=== PATIENT | male | born 1955 | race Caucasian/White ===

== ENCOUNTER 2017-07-21 18:48 | Emergency (ER) | payer MEDICARE, OTHER ==
[~2017-07-21] VITALS: Ht 182.9 cm; Wt 78.9 kg
--- NOTE | 2017-07-21 18:48 | NUR ---
Patient was BIBA and taken to bed 06 via gurney.
[2017-07-21 18:54] VITALS: BP 111/87
--- NOTE | 2017-07-21 19:03 | NUR ---
PATIENT BIB EMS FROM HOME WITH C/O BACK PAIN X 2 DAYS;PAIN SCALE OF 10/10 WITH NAUSEA BUT NO VOMITTING; DENIES INJURIES/FALL; HX OF ARTHRITIS;RX OF HYDROMORPHONE, SAERTRALINE, AMITRIPLYLINE .PER EMS PT HAVE BEEN IN HIS BED FOR A WEEK. SKIN IS PINK/WARM/DRY; AAOX4; LUNGS CLEAR BL; HR EVEN AND REGULAR; PT DENIES ANY FEVER, CP, SOB, OR COUGH AT THIS TIME;PATIENT POSITIONED FOR COMFORT; HOB ELEVATED; BEDRAILS UP X2; BED DOWN. ALL MONITORS IN PLACED;ER MD MADE AWARE OF PT STATUS.
--- NOTE | 2017-07-21 19:03 | NUR ---
Note undone in EDM - 07/21/17 at 1905 by [facility] PATIENT BIB EMS FROM HOME WITH C/O BACK PAIN X 2 DAYS;PAIN SCALE OF 10/10 WITH NAUSEA BUT NO VOMITTING; DENIES INJURIES/FALL; HX OF ARTHRITIS;RX OF HYDROMORPHONE, SAERTRALINE, AMITRIPLYLINE .PER EMS PT HAVE BEEN IN HIS BED FOR A WEEK. SKIN IS PINK/WARM/DRY; AAOX4 WITH EVEN AND STEADY GAIT; LUNGS CLEAR BL; HR EVEN AND REGULAR; PT DENIES ANY FEVER, CP, SOB, OR COUGH AT THIS TIME;PATIENT POSITIONED FOR COMFORT; HOB ELEVATED; BEDRAILS UP X2; BED DOWN. ER MD MADE AWARE OF PT STATUS.
[2017-07-21] MEDS ORDERED: SERT25TA PO (19:09)
[2017-07-21] MEDS ORDERED: ELA50 PO (19:09)
[2017-07-21] MEDS ORDERED: HYDR2TAB6 PO (19:09)
--- NOTE | 2017-07-21 22:38 | NUR ---
Patient discharged with v/s stable. Written and verbal after care instructions given and explained. Patient alert, oriented and verbalized understanding of instructions. Ambulatory with steady gait. All questions addressed prior to discharge. ID band removed. Patient advised to follow up with PMD. Rx of FLEXERIL 10MG given. Patient educated on indication of medication including possible reaction and side effects. Opportunity to ask questions provided and answered.
[2017-07-21 22:39] VITALS: BP 119/79
== END 2017-07-21 22:38 | disposition home or self-care (01) ==
LOC: MED 18:48
DX: M43.8X5 Other specified deforming dorsopathies, thoracolumbar region (principal); F32.9 Major depressive disorder, single episode, unspecified; Z79.899 Other long term (current) drug therapy
CPT/HCPCS: 72110; 99284